=== PATIENT | female | born 1945 | race Caucasian/White ===

== ENCOUNTER 2017-10-21 08:37 | Day surgery (SDC) | payer OTHER ==
[~2017-10-21] VITALS: Ht 154.9 cm; Wt 89.9 kg
[~2017-10-21 08:37] MED LIST: ASPIRIN81 M2 PO; BENZONATATE100 MG PO; CALCIUM 500 MG1 EACH PO; COREG6.25 M1 PO; DITROPAN XL5 MG PO; FENOFIBRIC ACI135 MG PO; FOLIC ACID0.8 MG PO; LANTUS 3 M100 UNITS1 SC; LISINOPRIL20 MG PO; NEXIUM40 MG PO; NITROGLYCERIN0.4 MG SL; VICTOZA0.6 MG/0.1 SC; VITAMIN B-121000 MC3 PO; VITAMIN D400 UNIT PO; ZOCOR40 MG PO
[2017-10-21 09:07] LABS: POINT-OF-CARE METER ID UU14174212
[2017-10-21 09:17] VITALS: BP 165/71
[2017-10-21 11:40] LABS: POINT-OF-CARE METER ID UU14174212; POINT-OF-CARE USER ID AHSRSCSLC11
[2017-10-21 13:47] LABS: POINT-OF-CARE METER ID UU13113675
[2017-10-21 13:55] VITALS: BP 188/82
[2017-10-21 14:30] VITALS: BP 150/66
== END 2017-10-21 14:35 | disposition home or self-care (01) ==
LOC: SDC 08:37
PROVIDERS: Ophthalmology
DX: H35.372 Puckering of macula, left eye (principal); H35.342 Macular cyst, hole, or pseudohole, left eye; E11.3292 Type 2 diabetes mellitus with mild nonproliferative diabetic retinopathy without macular edema, left eye; I25.10 Atherosclerotic heart disease of native coronary artery without angina pectoris; I10 Essential (primary) hypertension; K21.9 Gastro-esophageal reflux disease without esophagitis; Z85.038 Personal history of other malignant neoplasm of large intestine; Z79.4 Long term (current) use of insulin
CPT/HCPCS: 82948; J0690; J1100; J2250; J2795; J3300